=== PATIENT | female | born 2000 | race Two or more races ===

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

== ENCOUNTER 2023-06-03 20:20 | Emergency (ER) | payer OTHER ==
[~2023-06-03] VITALS: Ht 160 cm; Wt 55.0 kg
[~2023-06-03 20:20] MED LIST: DIVA500T3 PO
[2023-06-03 20:21] VITALS: O2SAT 100
[2023-06-03 20:59] LABS: BASOPHILS % 1.9 % (0.0-2.0); EOSINOPHILS % 2.1 % (0.0-5.0); HEMOGLOBIN. 12.9 g/dL (12.0-16.0); LYMPHOCYTES % 51.6 % (20.0-50.0); MEAN CORPUSCULAR HEMOGLOBIN 28.9 pg (28.0-32.0); MEAN CORPUSCULAR HGB CONC 34.8 g/dL (31.0-37.0); MEAN PLATELET VOLUME 7.3 fl (7.4-10.4); NEUTROPHILS % 37.4 % (40.0-76.0); PLATELET 237 x1000/uL (130-400); RED BLOOD CELL COUNT 4.46 mill/uL (4.2-5.4); RED CELL DISTRIBUTION WIDTH 13.6 % (11.6-14.6); WHITE BLOOD COUNT 4.7 x1000/uL (4.5-11.0)
[2023-06-03] MEDS: LAMOTRIGINE 100MG TABLET PO SCH (21:00)
[2023-06-03] MEDS: ACETAMINOPHEN 325MG TABLET PO ONE (21:00)
[2023-06-03 21:05] LABS: CHLORIDE 105 mEq/L (98-107); POTASSIUM 3.5 mEq/L (3.5-5.1); SODIUM 139 mEq/L (136-145)
[2023-06-03 21:06] LABS: CALCIUM 9.1 mg/dL (8.7-10.4); CARBON DIOXIDE 26 mEq/L (21-32)
[2023-06-03 21:08] LABS: HCG SCREEN NEGATIVE
[2023-06-03 21:11] LABS: CREATININE 0.7 mg/dL (0.6-1.0); GLUCOSE 133 mg/dL (70-105); UREA NITROGEN BLOOD 8 mg/dL (9-23)
[2023-06-03 21:13] LABS: ALANINE AMINOTRANSFERASE 23 IU/L (10-49); ALBUMIN 4.5 g/dL (3.2-4.8); ASPARTATE AMINOTRANSFERASE 19 IU/L (<34)
[2023-06-03 21:14] LABS: BILIRUBIN TOTAL 0.3 mg/dL (0.1-1.0); PROTEIN TOTAL 7.7 g/dL (6.0-8.3)
[2023-06-03 21:19] LABS: CARBAMAZEPINE < 0.4 ug/mL (4-12); ETHANOL BLOOD < 10 mg/dL (<10); PHENOBARBITAL < 3.0 ug/mL (15.0-40.0); PHENYTOIN < 2.0 ug/mL (10-20)
[2023-06-03 22:05] LABS: CLARITY URINE CLOUDY (CLEAR); COLOR URINE YELLOW (YELLOW); GLUCOSE URINE NEGATIVE (NEGATIVE); KETONES URINE TRACE (NEGATIVE); LEUKOCYTE ESTERASE URINE NEGATIVE (NEGATIVE); NITRITE URINE NEGATIVE (NEGATIVE); OCCULT BLOOD URINE NEGATIVE (NEGATIVE); PROTEIN URINE 1+ (NEGATIVE); SPECIFIC GRAVITY URINE 1.025 (1.005-1.030); UROBILINOGEN URINE 0.2 E.U./dL (0.2-1.0)
[2023-06-03 22:13] LABS: *AMPHETAMINES SCREEN URINE NEGATIVE (NEGATIVE); *BARBITURATES SCREEN URINE NEGATIVE (NEGATIVE); *BENZODIAZEPINES SCREEN URINE NEGATIVE (NEGATIVE); *COCAINE SCREEN URINE NEGATIVE (NEGATIVE); METHADONE URINE SCREEN Neg (NEGATIVE)
[2023-06-03 22:14] LABS: CANNABINOID URINE SCREEN NEGATIVE (NEGATIVE); ECSTASY MDMA SCREEN URINE NEGATIVE (NEGATIVE); OPIATES URINE SCREEN NEGATIVE (NEGATIVE); PHENCYCLIDINE URINE SCREEN NEGATIVE (NEGATIVE)
[2023-06-03 22:23] LABS: BACTERIA URINE TRACE; RBC URINE NONE SEEN /hpf (0-2); SQUAMOUS EPITHELIAL CELL URINE 2+ /lpf (RARE/1+); WBC URINE 0-2 /hpf (0-2)
[2023-06-03] MEDS: IBUPROFEN 400MG TABLET PO ONE (23:04)
[2023-06-03 23:17] VITALS: BP 91/56; PULSE 67; RESP 18; TEMP 98.2
== END 2023-06-03 23:17 | disposition home or self-care (01) ==
LOC: ER 20:20
DX: G40.89 Other seizures (principal); Z88.0 Allergy status to penicillin; Z88.8 Allergy status to other drugs, medicaments and biological substances
CPT/HCPCS: 80053; 80305; 81003; 80320; 80156; 80185; 82962; 84703; 80184; 80165; 85025; 36415; 71045; 99284; Z7610 ×2; G0480